=== PATIENT | male | born 1950 | race Caucasian/White ===

== ENCOUNTER 2020-08-29 20:28 | Inpatient (IN) | payer MEDICAID, SELFPAY ==
--- NOTE | ~2020-08-29 | US_ITS ---
EXAMINATION: US ABDOMEN LIMITED CLINICAL INFORMATION: Upper GI bleed. Rule out cirrhosis. COMPARISON: None TECHNIQUE: Real-time imaging of the right upper quadrant abdominal viscera. FINDINGS: PANCREAS: The pancreatic body and portions of the head and tail are visualized and appear unremarkable. Remainder of pancreas is obscured by overlying bowel gas. LIVER: Abnormal. The liver is atrophic with relative enlargement of the left lobe and atrophy of the right lobe. Nodular surface contour is seen and liver parenchymal texture is coarse and heterogeneous. Small volume ascites is seen surrounding the liver. With color Doppler imaging, the main portal vein is found to be patent with normal hepatopetal flow demonstrated. There is enlargement of the splenic vein. Findings are consistent with liver cirrhosis and portal venous hypertension. No focal hepatic lesion. There is no intrahepatic biliary duct dilatation seen. GALLBLADDER: Abnormal. The gallbladder is physiologically distended without evidence of stones, sludge, or polyps. There is diffuse gallbladder wall thickening and gallbladder wall edema, most likely a sympathetic reaction to the ascitic fluid as well as hepatic dysfunction. No sonographic Ng sign is elicited while scanning over the gallbladder. COMMON BILE DUCT: Suboptimally seen with only a small segment visualized and appearing normal in caliber, measuring 0.2 cm in diameter. RIGHT KIDNEY: Normal. No hydronephrosis. No renal calculi or focal parenchymal lesions. The kidney measures 10.0 cm in maximum dimension. FREE FLUID: None. US/US abdomen limited IMPRESSION: 1. As discussed above, findings are consistent with liver cirrhosis and portal venous hypertension. 2. Diffuse gallbladder wall thickening is seen, likely a function of hepatic dysfunction and surrounding ascitic fluid. Clinical correlation requested. CBD, though poorly visualized, does not appear dilated and no sonographic Ng sign is elicited while scanning over the gallbladder.
[2020-08-29 20:40] VITALS: BMI 25.0
[2020-08-29 20:46] VITALS: BP 142/86; PULSE 85; RESP 16; TEMP 36.9; O2SAT 99
--- NOTE | 2020-08-29 21:02 | ED.GIBLEED ---
HPI - GI Bleed General Chief complaint: GI Bleed Stated complaint: vomiting blood,urinating blood Time Seen by Provider: 08/29/20 20:57 Source: patient and family Mode of arrival: ambulatory Limitations: language barrier History of Present Illness HPI Narrative: Patient from [place] with history of hepatitis-C, upper GI bleed, comes here for as he vomited just an hour ago small amount handful of bright red blood also had bowel movement which had darker color blood 1 time before arrival. Patient feels abdominal upset no nausea no dizziness no palpitation. Patient does have a similar episode 2 more times 1st one was 2 years ago when he was admitted to ICU and received 4 units of blood had endoscopy and colonoscopy done which showed abnormal blood vessels in the stomach. About 8- 9 months ago patient had similar episode of vomiting blood and was admitted and received 3 units of blood and the skin which showed the same abnormal gastric blood vessels and was cauterized patient not on any PPI nonalcoholic and been doing good for last 8 months and this happened Related Data Allergies Allergy/AdvReac Type Severity Reaction Status Date / Time No Known Allergies Allergy Verified 08/29/20 20:57 Review of Systems Review of Systems: Constitutional : No Weight loss, No Fever, No Chills ENT/Mouth : No sore throat, No Rhinorrhea Eyes: No Eye Pain, No Swelling Cardiovascular : No Chest Pain, no palpitations Respiratory : No Cough, No Sputum, no shortness of breath Gastrointestinal : no Nausea, No Vomiting, No Diarrhea, + abdominal Pain, no black stools Genitourinary : No Dysuria, No Urinary Frequency Musculoskeletal : No joint pain, No Myalgias, No Joint Swelling Skin : No Skin Lesions, No rash Neuro : No Weakness, No Numbness, No Dizziness, No Headache Psych : No Anxiety/Panic, No Depression Heme/Lymph: No Bruising, No Lymphadenopathy Endocrine : No Polyuria, No Polydipsia All other systems reviewed and are negative [facility] Social History Social History Alcohol intake: never Patient Tobacco Use Status: Tobacco use Unknown Use of substances other than those prescribed or required for medical reasons: No Advance Directives: No Physical Exam Vital Signs: Vital Signs: Last Vital Signs Temp 98.5 F 08/29/20 20:46 Pulse 85 08/29/20 20:46 Resp 16 08/29/20 20:46 BP 142/86 H 08/29/20 20:46 Pulse Ox 99 08/29/20 20:46 Body Mass Index 25.0 Appearance: Alert. Oriented X3. No acute distress. Eyes: PERRLA, No Nystagmus ENT: Pharynx normal. Oral Mucosa moist Neck: Normal inspection. Neck supple. CVS: Normal heart rate and rhythm. Pulses normal. Respiratory: No respiratory distress. Equal air entry bilateral, no wheezing/rales/rhonchi Abdomen: Soft , mild epigastric tenderness Bowel sounds are present, no mass palpable, no CVA tenderness rectal: Maroon colored blood on the finger no stool guaiac-positive Skin: Skin warm and dry. Normal skin color. Normal skin turgor. Extremities: No lower extremity edema. No calf tenderness Neuro: Oriented X 3. No motor deficit. No sensory deficit.No cerebellar signs , cranial nerves II-XII intact MDM - GI Bleed MDM Narrative Medical decision making narrative: Patient's history of hepatitis-C with recurrent upper GI bleed platelet counts 100,000 slightly elevated LFT likely has portal hypertension and gastric varices which cause of bleeding in the past at this time patient vomited only 1 time hemodynamically stable has slight tachycardia with heart rate of 110 had another bowel movement in the ER with small amount of blood no more vomiting at this time. Patient started on Protonix and Sandostatin. 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 and she plan to do endoscopy in the morning. Will repeat H&H to see the trend type and screen to hold blood Lab Data Attestation: I reviewed the patient's lab results. Result diagrams: 08/29/20 21:34 08/29/20 21:34 Labs: Lab Results 08/29/20 08/29/20 08/29/20 Range/Units 21:33 21:34 21:34 WBC 5.4 (4.8-10.8) X10*3/uL RBC 3.95 L (4.60-5.80) X10*6/uL Hgb 11.4 L (14.0-18.0) g/dl Hct 35.3 L (42-52) % MCV 89.4 (80-98) fL MCH 28.9 (27.0-33.0) pg MCHC 32.3 (31.0-36.0) g/dl RDW 18.1 H (11.0-16.0) % Plt Count 100 L (160-400) X10*3/uL MPV 11.0 (9.4-12.4) fL Immature Gran % (Auto) 0.6 H (0.0-0.4) % Neut % (Auto) 77.0 H (45-73) % Lymph % (Auto) 13.8 L (20-40) % Nance % (Auto) 6.6 (2-11) % Eos % (Auto) 1.8 (0-4) % Baso % (Auto) 0.2 (0-2) % Lymph # (Auto) 0.8 L (1.2-4.9) X10*3/uL Nance # (Auto) 0.4 (0.1-1.2) X10*3/uL Eos # (Auto) 0.1 (0.0-0.4) X10*3/uL Baso # (Auto) 0.0 (0.0-0.2) X10*3/uL Abs Immat Gran (auto) 0.03 (0.00-0.03) X10*3/uL Absolute Neuts (auto) 4.2 (2.0-8.3) X10*3/uL Absolute Nucleated RBC 0.000 (0.0-0.012) X10*3/uL Nucleated RBC % (auto) 0.0 (0.0-0.2) /100WBC PT 16.1 H (10.8-13.0) SEC INR 1.4 H (0.9-1.1) APTT 31.7 (24.1-38.0) SEC Sodium (135-145) mmol/L Potassium (3.3-5.1) mmol/L Chloride (96-108) mmol/L Carbon Dioxide (22-29) mmol/L Anion Gap (12-20) BUN (9-16) mg/dL Creatinine (0.5-1.4) mg/dL Estim Creat Clear Calc Estimated GFR Random Glucose (60-115) mg/dL Calcium (8.4-10.2) mg/dL Total Bilirubin (0.0-1.0) mg/dL Direct Bilirubin (0.0-0.5) mg/dL AST (5-37) U/L ALT (0-40) U/L Alkaline Phosphatase (39-117) U/L Total Protein (6.5-8.0) g/dL Albumin (3.5-5.0) g/dL Lipase (8-78) U/L Stool Occult Blood POSITIVE (NEGATIVE) COVID-19 (SEBASTIAN) (Negative) COVID-19 Clin Com Blood Type Antibody Screen 08/29/20 08/29/20 08/30/20 Range/Units 21:34 21:34 00:28 WBC (4.8-10.8) X10*3/uL RBC (4.60-5.80) X10*6/uL Hgb (14.0-18.0) g/dl Hct (42-52) % MCV (80-98) fL MCH (27.0-33.0) pg MCHC (31.0-36.0) g/dl RDW (11.0-16.0) % Plt Count (160-400) X10*3/uL MPV (9.4-12.4) fL Immature Gran % (Auto) (0.0-0.4) % Neut % (Auto) (45-73) % Lymph % (Auto) (20-40) % Nance % (Auto) (2-11) % Eos % (Auto) (0-4) % Baso % (Auto) (0-2) % Lymph # (Auto) (1.2-4.9) X10*3/uL Nance # (Auto) (0.1-1.2) X10*3/uL Eos # (Auto) (0.0-0.4) X10*3/uL Baso # (Auto) (0.0-0.2) X10*3/uL Abs Immat Gran (auto) (0.00-0.03) X10*3/uL Absolute Neuts (auto) (2.0-8.3) X10*3/uL Absolute Nucleated RBC (0.0-0.012) X10*3/uL Nucleated RBC % (auto) (0.0-0.2) /100WBC PT (10.8-13.0) SEC INR (0.9-1.1) APTT (24.1-38.0) SEC Sodium 143 (135-145) mmol/L Potassium 4.3 (3.3-5.1) mmol/L Chloride 108 (96-108) mmol/L Carbon Dioxide 28 (22-29) mmol/L Anion Gap 11 L (12-20) BUN 33 H (9-16) mg/dL Creatinine 0.84 (0.5-1.4) mg/dL Estim Creat Clear Calc 75.4 Estimated GFR > 60 Random Glucose 111 (60-115) mg/dL Calcium 9.3 (8.4-10.2) mg/dL Total Bilirubin 1.0 (0.0-1.0) mg/dL Direct Bilirubin 0.5 (0.0-0.5) mg/dL AST 74 H (5-37) U/L ALT 89 H (0-40) U/L Alkaline Phosphatase 79 (39-117) U/L Total Protein 7.7 (6.5-8.0) g/dL Albumin 4.2 (3.5-5.0) g/dL Lipase 83 H (8-78) U/L Stool Occult Blood (NEGATIVE) COVID-19 ([facility]IAN) Negative (Negative) COVID-19 Clin Com See Note Blood Type A Positive Antibody Screen NEGATIVE Discharge Plan Discharge Clinical Impression: GI bleed Qualifiers: GI bleed type/associated pathology: angiodysplasia of stomach and duodenum Qualified Code(s): K31.811 - Angiodysplasia of stomach and duodenum with bleeding Patient Disposition: Admitted As Inpatient
[2020-08-29 21:39] LABS: Basophils Percent Auto 0.2 % (0-2); Eosinophils Absolute Auto 0.1 X10*3/uL (0.0-0.4); Eosinophils Percent Auto 1.8 % (0-4); Hematocrit 35.3 % (42-52); Hemoglobin 11.4 g/dl (14.0-18.0); Imm Gran Abs Auto 0.03 X10*3/uL (0.00-0.03); Imm Gran Pct Auto 0.6 % (0.0-0.4); Lymphocytes Absolute Auto 0.8 X10*3/uL (1.2-4.9); Lymphocytes Percent Auto 13.8 % (20-40); MANUAL DIFF FLAG NO; Mean Corpuscular HGB Conc 32.3 g/dl (31.0-36.0); Mean Corpuscular Hemoglobin 28.9 pg (27.0-33.0); Mean Corpuscular Volume 89.4 fL (80-98); Monocytes Absolute Auto 0.4 X10*3/uL (0.1-1.2); Monocytes Percent Auto 6.6 % (2-11); Neutrophils Absolute Auto 4.2 X10*3/uL (2.0-8.3); Platelet Count 100 X10*3/uL (160-400); Red Blood Count 3.95 X10*6/uL (4.60-5.80); Red Cell Distribution Width 18.1 % (11.0-16.0); White Blood Count 5.4 X10*3/uL (4.8-10.8)
[2020-08-29 21:40] LABS: OBS Int Ctl Valid YES; OBS1 POSITIVE (NEGATIVE)
[2020-08-29] MEDS: Pantoprazole Sodium 40 MG/10 ML VIAL 80 MG IVPUSH (21:56)
[2020-08-29] MEDS: Magnesium Hydrox/Alum Hydrox 30 ML ORAL.SUSP PO (21:57)
[2020-08-29 22:04] LABS: INTERNATIONAL NORM RATIO 1.4 (0.9-1.1); Partial Thromboplastin Time 31.7 SEC (24.1-38.0); Prothrombin Time 16.1 SEC (10.8-13.0)
[2020-08-29 22:14] LABS: Alanine Aminotransferase 89 U/L (0-40); Albumin Level 4.2 g/dL (3.5-5.0); Alkaline Phosphatase 79 U/L (39-117); Anion Gap 11 (12-20); Aspartate Amino Transferase 74 U/L (5-37); Bilirubin Direct 0.5 mg/dL (0.0-0.5); Blood Urea Nitrogen 33 mg/dL (9-16); Calcium 9.3 mg/dL (8.4-10.2); Carbon Dioxide 28 mmol/L (22-29); Chloride 108 mmol/L (96-108); Creatinine Clr Calc Pharmacy 75.4; Estimated Glomerular Filt Rate > 60; Glucose Random 111 mg/dL (60-115); Lipase 83 U/L (8-78); Potassium 4.3 mmol/L (3.3-5.1); Sodium 143 mmol/L (135-145); Total Protein 7.7 g/dL (6.5-8.0)
[2020-08-30] VITALS (12 sets, daily range): BP systolic 96–196; BP diastolic 52–99; PULSE 68–93; RESP 14–20; TEMP 36.7–37.2; O2SAT 96–100
[2020-08-30] MEDS: Pantoprazole Sodium 80 MG in 0.9 % Sodium Chloride 80 ML 10 MG IV ×2 (00:34→09:32)
[2020-08-30] MEDS: 0.9 % Sodium Chloride 1,000 ML 999 ML IVCONT (00:36)
[2020-08-30 00:54] LABS: COVID-19 Test Negative (Negative)
--- NOTE | 2020-08-30 01:08 | PM.IMHP ---
History of Present Illness Date of Service: 08/30/20 Chief Complaint: Blood in the vomitus 70-year-old male with a past medical history of hepatitis-C, history of GI bleed-received blood transfusions in the past; history of question varices presented to the hospital with a chief complaint of blood in the vomitus. Patient reported that he had an episode of blood in the stool, bright red in color, followed by a he had a small amount of blood in the vomitus. Subsequently came to the ER for further evaluation. Mentions that he had similar episode in the past about a year ago and received blood transfusion. Patient denies any chest pain palpitations lightheadedness dizziness. Denies any numbness tingling. Denies any fever chills cough. Denies any urinary symptoms. Review of all other systems is negative except mentioned above ER course: Per ER team patient exam was benign, vitals stable, noted to have a hemoglobin of 11.4, platelet count of 100; ER team discussed with Gastroenterology on-call who recommended to give the patient NPO for possible endoscopy in the morning and also recommended to start the patient on octreotide drip. [facility] Medical History (Updated 08/31/20 @ 14:23 by Mikel Urias MD) Hepatitis C Social History Household Members: Children Housing: House Do you presently have visiting nurse or other home services: No Alcohol intake: never Patient Tobacco Use Status: Never used Tobacco Use of substances other than those prescribed or required for medical reasons: No Currently Displaying Signs/Symptoms of Drug Intoxication Withdrawal: No Advance Directives: No Do you have thoughts of harming others: None Do you have a plan to hurt others: No Plan Recently lost weight without trying: No Eating poorly because of decreased appetite: No Nutrition Risks: No Nutritional Risk Poor oral hygiene: No Meds Allergies Allergy/AdvReac Type Severity Reaction Status Date / Time Penicillins [PCN] Allergy Unknown Verified 08/30/20 11:10 Active Medications: Current Medications Generic Name Dose Route Start Last Admin Trade Name Freq PRN Reason Stop Dose Admin Pantoprazole Sodium 80 mg/ 100 mls @ 10 mls/hr 08/30/20 00:15 08/30/20 00:34 Sodium Chloride IV 8 mg/hr .Q10H KIMMY 10 mls/hr Administration 8 MG/HR Sodium Chloride 1,000 mls @ 999 mls/hr 08/30/20 00:15 08/30/20 00:36 Ns IVCONT 08/30/20 01:15 999 mls/hr .Q1H1M KIMMY Administration Octreotide Acetate 500 mcg/ 501 mls @ 25.05 mls/hr 08/30/20 00:45 Sodium Chloride IVCONT .Q20H KIMMY 25 MCG/HR Dextrose/Sodium Chloride 1,000 mls @ 100 mls/hr 08/30/20 01:15 D51/2ns IVCONT .Q10H KIMMY Octreotide Acetate 500 mcg/ 501 mls @ 50.1 mls/hr 08/30/20 01:15 Sodium Chloride IVCONT 09/02/20 01:14 .Q10H KIMMY 50 MCG/HR Ondansetron HCl 4 mg 08/30/20 01:05 Ondansetron Hcl 4 Mg/2 Ml Vial IVPUSH Q8H PRN Nausea and Vomiting Pantoprazole Sodium 40 mg 08/30/20 06:30 Pantoprazole Sodium 40 Mg/10 Ml Vial IVPUSH BID@0630,1630 KIMMY Senna 17.2 mg 08/30/20 01:05 Sennosides 8.6 Mg Tablet PO BEDTIME PRN Constipation Sodium Chloride 3 ml 08/30/20 08:00 0.9 % Sodium Chloride Flush 3 Ml Syringe IVFLUSH QSHIFT [facility] Physical Exam Vital Signs and Narrative: Vital Signs: Last Vital Signs Temp 98.5 F 08/29/20 20:46 Pulse 85 08/29/20 20:46 Resp 16 08/29/20 20:46 BP 142/86 H 08/29/20 20:46 Pulse Ox 99 08/29/20 20:46 Body Mass Index 25.0 Gen: Appears be in no acute distress HEENT: NCAT, Moist mucosa. Pulmonary: Vesicular breath sounds, fair air entry CVS: Normal S1-S2 Abdomen: BS+, Soft, Nontender Extremities: Warm well perfused Neuro: Alert and awake. Results Labs CBC and Chem 7: 08/31/20 16:16 08/31/20 05:56 Labs: Laboratory Results - last 24 hr 08/29/20 08/29/20 08/29/20 21:33 21:34 21:34 MCV 89.4 MCH 28.9 MCHC 32.3 RDW 18.1 H Plt Count 100 L MPV 11.0 Immature Gran % (Auto) 0.6 H Neut % (Auto) 77.0 H Lymph % (Auto) 13.8 L Weston % (Auto) 6.6 Eos % (Auto) 1.8 Baso % (Auto) 0.2 Lymph # (Auto) 0.8 L Weston # (Auto) 0.4 Eos # (Auto) 0.1 Baso # (Auto) 0.0 Abs Immat Gran (auto) 0.03 Absolute Neuts (auto) 4.2 Absolute Nucleated RBC 0.000 Nucleated RBC % (auto) 0.0 PT 16.1 H INR 1.4 H APTT 31.7 Anion Gap Estim Creat Clear Calc Estimated GFR Random Glucose Calcium Total Bilirubin Direct Bilirubin AST ALT Alkaline Phosphatase Total Protein Albumin Lipase Stool Occult Blood POSITIVE COVID-19 ([facility]STIAN) COVID-19 Clin Com Blood Type Antibody Screen 08/29/20 08/29/20 08/30/20 21:34 21:34 00:28 MCV MCH MCHC RDW Plt Count MPV Immature Gran % (Auto) Neut % (Auto) Lymph % (Auto) Weston % (Auto) Eos % (Auto) Baso % (Auto) Lymph # (Auto) Weston # (Auto) Eos # (Auto) Baso # (Auto) Abs Immat Gran (auto) Absolute Neuts (auto) Absolute Nucleated RBC Nucleated RBC % (auto) PT INR APTT Anion Gap 11 L Estim Creat Clear Calc 75.4 Estimated GFR > 60 Random Glucose 111 Calcium 9.3 Total Bilirubin 1.0 Direct Bilirubin 0.5 AST 74 H ALT 89 H Alkaline Phosphatase 79 Total Protein 7.7 Albumin 4.2 Lipase 83 H Stool Occult Blood COVID-19 (SEBASTIAN) Negative COVID-19 Clin Com See Note Blood Type A Positive Antibody Screen NEGATIVE Assessment and Plan (1) GI bleed: Status: Acute 70-year-old male with a past medical history of hep C, history of GI bleed requiring blood transfusion presented to the hospital with a chief complaint of blood in the vomitus and blood in the stool. GI bleed: patient has question history of varices. Continue octreotide drip as per Gastroenterology recommendations. IV PPI b.i.d. Serial H&H Telemetry Gentle IV fluids DVT prophylaxis: SCD boots Code status: Full code
[2020-08-30] MEDS: Octreotide Acetate 100 MCG/ML AMPUL 50 MCG IVPUSH (01:53)
[2020-08-30] MEDS: Octreotide Acetate 500 MCG in 0.9 % Sodium Chloride 500 ML 50.1 MCG IVCONT ×2 (01:54→14:12)
[2020-08-30 02:11] LABS: Hematocrit 28.7 % (42-52); Hemoglobin 9.4 g/dl (14.0-18.0)
[2020-08-30] MEDS: ondansetron HCL 4 MG/2 ML VIAL IVPUSH (03:09)
[2020-08-30] MEDS: Morphine Sulfate 4 MG/ML CARTRIDGE IVPUSH (03:09)
[2020-08-30] MEDS: Dextrose 5 % and 0.45 % NaCl 1,000 ML 100 ML IVCONT ×3 (05:25→22:40)
[2020-08-30] MEDS: Pantoprazole Sodium 40 MG/10 ML VIAL IVPUSH ×2 (06:26→17:27)
[2020-08-30 06:48] LABS: MANUAL DIFF FLAG NO
[2020-08-30 06:57] LABS: Basophils Percent Auto 0.4 % (0-2); Eosinophils Absolute Auto 0.1 X10*3/uL (0.0-0.4); Eosinophils Percent Auto 1.8 % (0-4); Hematocrit 27.9 % (42-52); Imm Gran Abs Auto 0.02 X10*3/uL (0.00-0.03); Imm Gran Pct Auto 0.7 % (0.0-0.4); Lymphocytes Absolute Auto 0.6 X10*3/uL (1.2-4.9); Lymphocytes Percent Auto 20.9 % (20-40); Mean Corpuscular HGB Conc 32.3 g/dl (31.0-36.0); Mean Corpuscular Hemoglobin 29.4 pg (27.0-33.0); Mean Corpuscular Volume 91.2 fL (80-98); Mean Platelet Volume 12.1 fL (9.4-12.4); Monocytes Absolute Auto 0.3 X10*3/uL (0.1-1.2); Monocytes Percent Auto 9.7 % (2-11); Neutrophils Absolute Auto 1.9 X10*3/uL (2.0-8.3); Neutrophils Percent Auto 66.5 % (45-73); Red Blood Count 3.06 X10*6/uL (4.60-5.80); Red Cell Distribution Width 17.4 % (11.0-16.0); White Blood Count 2.8 X10*3/uL (4.8-10.8)
--- NOTE | 2020-08-30 07:35 | PM.GICN ---
History of Present Illness Data of Consult Service Date: 08/30/20 Requesting physician: Scott Taylor Primary Care Provider: Nonstaff Physician HPI Reason for consult: GI Bleed 70-year-old [place] speaking male presented to [facility] ED on 08/29/2020 with GI bleeding: HPI Narrative: Patient from [place] with history of hepatitis-C, upper GI bleed, comes here for as he vomited just an hour ago small amount handful of bright red blood also had bowel movement which had darker color blood 1 time before arrival. Patient feels abdominal upset no nausea no dizziness no palpitation. Patient does have a similar episode 2 more times 1st one was 2 years ago when he was admitted to ICU and received 4 units of blood had endoscopy and colonoscopy done which showed abnormal blood vessels in the stomach. About 8- 9 months ago patient had similar episode of vomiting blood and was admitted and received 3 units of blood and the skin which showed the same abnormal gastric blood vessels and was cauterized patient not on any PPI nonalcoholic and been doing good for last 8 months and this happened Patient started on Protonix and Sandostatin in the ED and transfused 1 unit of PRBC. Pt was diagnosed with Hepatitis C 40 yrs ago (likely from past IVDA) and denies getting any treatment in the past Pt denies dysphagia, nausea, change in appetite or weight. Denies recent change in bowel habits, constipation, diarrhea. Patient denies major cardiac or pulmonary problems, loud snoring or sleep apnea Denies problems with anesthesia in the past. Denies being on chronic anticoagulation. Patient denies known family history of colon polyps, colon cancer or other GI malignancies. PAST EGD/COLONOSCOPY: EGD and colon 2 yrs ago in [place] EGD 8-9 months ago in [place] Is source of above procedures are not available at time of this dictation Review of Systems Constitutional: Constitutional: Denies fever(s), Denies headache(s) and Denies weight loss Eyes: Eyes: Denies eye discharge and Denies irritation ENT: Reports Normal hearing present, Denies dysphagia, Denies dizziness and Denies headache(s) Cardiovascular: Cardiovascular: Denies chest pain, Denies leg edema and Denies dyspnea on exertion Respiratory: Respiratory: Denies cough, Denies dyspnea on exertion and Denies wheezing Gastrointestinal: Gastrointestinal: Reports abdominal pain, Reports hematochezia (maroon stools), Denies change in bowel habits, Denies dysphagia, Denies heartburn and Reports hematemesis Genitourinary: Genitourinary: Denies dysuria Musculoskeletal: Musculoskeletal: Denies back pain and Denies arthralgias Integumentary/Breasts: Skin/Breast: Denies pruritus, Denies rash and Denies jaundice Neurologic: Reports Normal hearing present, Denies Abnormal speech present, Denies dizziness, Denies headache(s) and Denies seizure-like activity Psychiatric: Psychiatric: Denies anxiety, Denies depression and Denies panic attacks Endocrine: Endocrine: Denies cold intolerance, Denies flushing and Denies heat intolerance Hematologic/Lymphatic: Hematologic/Lymphatic: Denies easy bleeding and Denies easy bruising Allergic/Immunologic: Allergic/Immunologic: Denies wheezing PMFSH Past Medical History Medical History (Updated 09/10/20 @ 00:02 by Chantale Rahman) Hepatitis C Social History Social History Household Members: Children Housing: House Do you presently have visiting nurse or other home services: No Alcohol intake: never Patient Tobacco Use Status: Never used Tobacco Use of substances other than those prescribed or required for medical reasons: No Currently Displaying Signs/Symptoms of Drug Intoxication Withdrawal: No Advance Directives: No Do you have thoughts of harming others: None Do you have a plan to hurt others: No Plan Recently lost weight without trying: No Eating poorly because of decreased appetite: No Nutrition Risks: No Nutritional Risk Poor oral hygiene: No service: No Meds Allergies Allergy/AdvReac Type Severity Reaction Status Date / Time Penicillins [PCN] Allergy Unknown Verified 08/30/20 11:10 Active Medications: Current Medications Generic Name Dose Route Start Last Admin Trade Name Freq PRN Reason Stop Dose Admin Pantoprazole Sodium 80 mg/ 100 mls @ 10 mls/hr 08/30/20 00:15 08/30/20 00:34 Sodium Chloride IV 8 mg/hr .Q10H KIMMY 10 mls/hr Administration 8 MG/HR Octreotide Acetate 500 mcg/ 501 mls @ 25.05 mls/hr 08/30/20 00:45 08/30/20 01:53 Sodium Chloride IVCONT Not Given .Q20H KIMMY 25 MCG/HR Dextrose/Sodium Chloride 1,000 mls @ 100 mls/hr 08/30/20 01:15 06/12/21 05:25 D51/2ns IVCONT 100 mls/hr .Q10H KIMMY Administration Octreotide Acetate 500 mcg/ 501 mls @ 50.1 mls/hr 08/30/20 01:15 08/30/20 01:54 Sodium Chloride IVCONT 09/02/20 01:14 50 mcg/hr .Q10H KIMMY 50.1 mls/hr Administration 50 MCG/HR Ondansetron HCl 4 mg 08/30/20 01:05 Ondansetron Hcl 4 Mg/2 Ml Vial IVPUSH Q8H PRN Nausea and Vomiting Pantoprazole Sodium 40 mg 08/30/20 06:30 08/30/20 06:26 Pantoprazole Sodium 40 Mg/10 Ml Vial IVPUSH 40 mg BID@0630,1630 KIMMY Administration Senna 17.2 mg 08/30/20 01:05 Sennosides 8.6 Mg Tablet PO BEDTIME PRN Constipation Sodium Chloride 3 ml 08/30/20 08:00 0.9 % Sodium Chloride Flush 3 Ml Syringe IVFLUSH QSHIFT [facility] Physical Exam Vital Signs: Vital Signs: Last Vital Signs Temp 98.4 F 08/30/20 03:13 Pulse 93 08/30/20 07:10 Resp 18 08/30/20 07:10 BP 135/77 08/30/20 07:10 Pulse Ox 97 08/30/20 07:10 Body Mass Index 25.0 Const: General: healthy appearing and no acute distress Nutritional Appearance: average body habitus Orientation/consciousness: patient oriented x3 Limitations: no limitations HENMT: Head: Yes normal to inspection Ears: hearing grossly normal bilaterally Mouth: Normal oral and palatal mucosa present Eyes: Sclerae: sclerae normal Pupils: Equal, round and reactive pupils present Neck: Neck: Yes normal visual inspection Chest: Chest palpation & inspection: normal inspection of the chest Resp: Effort & Inspection: normal respiratory effort Auscultation: clear to auscultation bilaterally Cardio: Palpation: normal PMI Rate: regular rate Rhythm: regular rhythm Heart sounds: S1 normal heart sound present, S2 normal heart sound present and no murmurs GI: Palpation (GI): Soft to palpation, Tenderness to palpation present (GI) (Mild epigastric tenderness) and No hepatosplenomegaly present Auscultation: normal bowel sounds Rectal Exam - Male: Yes deferred Skin: General skin exam: no rashes or lesions noted and other (Multiple tattoos) Neuro: General: patient oriented x3, gait normal and moves all extremities Cranial nerves: Yes Equal, round and reactive pupils present and Yes Normal hearing present Speech: No Abnormal speech present Psych: Appearance: grossly normal Mental Status: mental status grossly normal Results Labs CBC & Chem 7: 09/02/20 05:29 09/01/20 06:04 Labs: Short CBC 08/29/20 08/30/20 08/30/20 Range/Units 21:34 02:05 06:40 WBC 5.4 2.8 L (4.8-10.8) X10*3/uL Hgb 11.4 L 9.4 L 9.0 L (14.0-18.0) g/dl Hct 35.3 L 28.7 L 27.9 L (42-52) % Plt Count 100 L (160-400) X10*3/uL BMP 08/29/20 21:34 Sodium 143 Potassium 4.3 Chloride 108 Carbon Dioxide 28 BUN 33 H Creatinine 0.84 Calcium 9.3 Liver Function 08/29/20 Range/Units 21:34 Total Bilirubin 1.0 (0.0-1.0) mg/dL Direct Bilirubin 0.5 (0.0-0.5) mg/dL AST 74 H (5-37) U/L ALT 89 H (0-40) U/L Alkaline Phosphatase 79 (39-117) U/L Albumin 4.2 (3.5-5.0) g/dL Assessment and Plan (1) GI bleed: Qualifiers: GI bleed type/associated pathology: angiodysplasia of stomach and duodenum Qualified Code(s): K31.811 - Angiodysplasia of stomach and duodenum with bleeding Status: Resolved (2) Hepatitis C: Status: Acute (3) Thrombocytopenia: Status: Resolved 70 year old [place]ayan-speaking male with history of hepatitis-C. Pt admitted with 3rd episode of upper GI bleed. Past EGDs showed a blood vessel in the stomach - ? gastric Dieulafoy versus gastric varix. Patient was diagnosed with chronic hepatitis-C 40 years ago and denies getting any treatment in the past. Pt has thrombocytopenia and coagulopathy with elevated LFTs likely due to cirrhosis with portal hypertension. He is at risk for esophageal and gastric varices. Patient started on Protonix and Sandostatin in the ED and transfused 1 unit of PRBC. RECOMMENDATIONS: 1. Continue IV PPI and octrotide 2. Proceed with urgent upper endoscopy this morning - procedure and potential complications including bleeding, perforation, reaction to anesthetics and aspiration were reviewed with the patient with the help of a layer up. 3. AFP and abdominal US to screen for HCC and ascites. 4. Hepatitis serologies and Hepatitis C viral load - added to am labs Procedures Date of Service Date of Service: 08/30/20
[2020-08-30 07:45] LABS: Anion Gap 10 (12-20); Blood Urea Nitrogen 25 mg/dL (9-16); Calcium 5.8 mg/dL (8.4-10.2); Carbon Dioxide 15 mmol/L (22-29); Chloride 123 mmol/L (96-108); Creatinine Clr Calc Pharmacy 119.5; Estimated Glomerular Filt Rate > 60; Glucose Random 119 mg/dL (60-115); Potassium 3.5 mmol/L (3.3-5.1); Sodium 144 mmol/L (135-145)
[2020-08-30 07:46] LABS: Magnesium 1.1 mg/dL (1.6-2.6)
[2020-08-30 07:50] LABS: Platelet Count 59 X10*3/uL (160-400)
--- NOTE | 2020-08-30 08:01 | PC.NURSE ---
md almanza at bedside, plan for ultrasound and endoscopy today
--- NOTE | 2020-08-30 09:10 | HO.ANESPROP2 ---
[facility] Active Problems Active Problems: All Active Problems (Updated 08/30/20 @ 01:23 by Ricardo Swanson MD) GI bleed (Acute) Past Medical History Medical History (Updated 08/30/20 @ 09:46 by Kermit Bob MD) Hepatitis C Social History Social History Alcohol intake: never Patient Tobacco Use Status: Tobacco use Unknown Use of substances other than those prescribed or required for medical reasons: No Advance Directives: No Meds Allergies Allergy/AdvReac Type Severity Reaction Status Date / Time No Known Allergies Allergy Verified 08/29/20 20:57 Active Medications: Current Medications Generic Name Dose Route Start Last Admin Trade Name Freq PRN Reason Stop Dose Admin Pantoprazole Sodium 80 mg/ 100 mls @ 10 mls/hr 08/30/20 00:15 08/30/20 00:34 Sodium Chloride IV 8 mg/hr .Q10H KIMMY 10 mls/hr Administration 8 MG/HR Octreotide Acetate 500 mcg/ 501 mls @ 25.05 mls/hr 08/30/20 00:45 08/30/20 01:53 Sodium Chloride IVCONT Not Given .Q20H KIMMY 25 MCG/HR Dextrose/Sodium Chloride 1,000 mls @ 100 mls/hr 08/30/20 01:15 08/30/20 05:25 D51/2ns IVCONT 100 mls/hr .Q10H KIMMY Administration Octreotide Acetate 500 mcg/ 501 mls @ 50.1 mls/hr 08/30/20 01:15 08/30/20 01:54 Sodium Chloride IVCONT 09/02/20 01:14 50 mcg/hr .Q10H KIMMY 50.1 mls/hr Administration 50 MCG/HR Magnesium Sulfate 2 gm in 50 mls @ 25 mls/hr 08/30/20 08:51 Magnesium Sulfate/H2o IV 08/30/20 10:50 ONCE ONE Ondansetron HCl 4 mg 08/30/20 01:05 Ondansetron Hcl 4 Mg/2 Ml Vial IVPUSH Q8H PRN Nausea and Vomiting Pantoprazole Sodium 40 mg 08/30/20 06:30 08/30/20 06:26 Pantoprazole Sodium 40 Mg/10 Ml Vial IVPUSH 40 mg BID@0630,1630 KIMMY Administration Senna 17.2 mg 06/12/21 01:05 Sennosides 8.6 Mg Tablet PO BEDTIME PRN Constipation Sodium Chloride 3 ml 08/30/20 08:00 08/30/20 07:50 0.9 % Sodium Chloride Flush 3 Ml Syringe IVFLUSH Not Given QSHIFT KIMMY Exam Exam Date and Time: August 30, 2020 0910 Height,Weight and Vital Signs: Height 5 ft 7 in Weight 72.575 kg Last Vital Signs Temp 98.4 F 08/30/20 03:13 Pulse 93 08/30/20 07:10 Resp 18 08/30/20 07:10 BP 135/77 08/30/20 07:10 Pulse Ox 97 08/30/20 07:10 Pertinent Lab Results Pertinent Lab Results: Laboratory Tests 08/29/20 08/29/20 08/29/20 21:33 21:34 21:34 WBC 5.4 RBC 3.95 L Hgb 11.4 L Hct 35.3 L MCV 89.4 MCH 28.9 MCHC 32.3 RDW 18.1 H Plt Count 100 L MPV 11.0 Immature Gran % (Auto) 0.6 H Neut % (Auto) 77.0 H Lymph % (Auto) 13.8 L Irwin % (Auto) 6.6 Eos % (Auto) 1.8 Baso % (Auto) 0.2 Lymph # (Auto) 0.8 L Irwin # (Auto) 0.4 Eos # (Auto) 0.1 Baso # (Auto) 0.0 Abs Immat Gran (auto) 0.03 Absolute Neuts (auto) 4.2 Absolute Nucleated RBC 0.000 Nucleated RBC % (auto) 0.0 PT 16.1 H INR 1.4 H APTT 31.7 Sodium Potassium Chloride Carbon Dioxide Anion Gap BUN Creatinine Estim Creat Clear Calc Estimated GFR Random Glucose Calcium Magnesium Total Bilirubin Direct Bilirubin AST ALT Alkaline Phosphatase Total Protein Albumin Lipase Stool Occult Blood POSITIVE COVID-19 ([facility]) COVID-19 Clin Com Blood Type Antibody Screen Crossmatch 08/29/20 08/29/20 08/30/20 21:34 21:34 00:28 WBC RBC Hgb Hct MCV MCH MCHC RDW Plt Count MPV Immature Gran % (Auto) Neut % (Auto) Lymph % (Auto) Irwin % (Auto) Eos % (Auto) Baso % (Auto) Lymph # (Auto) Irwin # (Auto) Eos # (Auto) Baso # (Auto) Abs Immat Gran (auto) Absolute Neuts (auto) Absolute Nucleated RBC Nucleated RBC % (auto) PT INR APTT Sodium 143 Potassium 4.3 Chloride 108 Carbon Dioxide 28 Anion Gap 11 L BUN 33 H Creatinine 0.84 Estim Creat Clear Calc 75.4 Estimated GFR > 60 Random Glucose 111 Calcium 9.3 Magnesium Total Bilirubin 1.0 Direct Bilirubin 0.5 AST 74 H ALT 89 H Alkaline Phosphatase 79 Total Protein 7.7 Albumin 4.2 Lipase 83 H Stool Occult Blood COVID-19 ([facility]) Negative COVID-[employer] Com See Note Blood Type A Positive Antibody Screen NEGATIVE Crossmatch See Detail 08/30/20 08/30/20 08/30/20 02:05 06:40 06:40 WBC 2.8 L RBC 3.06 L D Hgb 9.4 L 9.0 L Hct 28.7 L 27.9 L MCV 91.2 MCH 29.4 MCHC 32.3 RDW 17.4 H Plt Count 59 L D MPV 12.1 Immature Gran % (Auto) 0.7 H Neut % (Auto) 66.5 Lymph % (Auto) 20.9 Irwin % (Auto) 9.7 Eos % (Auto) 1.8 Baso % (Auto) 0.4 Lymph # (Auto) 0.6 L Irwin # (Auto) 0.3 Eos # (Auto) 0.1 Baso # (Auto) 0.0 Abs Immat Gran (auto) 0.02 Absolute Neuts (auto) 1.9 L Absolute Nucleated RBC 0.000 Nucleated RBC % (auto) 0.0 PT INR APTT Sodium 144 Potassium 3.5 Chloride 123 H Carbon Dioxide 15 L Anion Gap 10 L BUN 25 H Creatinine 0.53 Estim Creat Clear Calc 119.5 Estimated GFR > 60 Random Glucose 119 H Calcium 5.8 L* D Magnesium Total Bilirubin Direct Bilirubin AST ALT Alkaline Phosphatase Total Protein Albumin Lipase Stool Occult Blood COVID-19 ([facility]IAN) COVID-19 Melinta Com Blood Type Antibody Screen Crossmatch 08/30/20 06:40 WBC RBC Hgb Hct MCV MCH MCHC RDW Plt Count MPV Immature Gran % (Auto) Neut % (Auto) Lymph % (Auto) Irwin % (Auto) Eos % (Auto) Baso % (Auto) Lymph # (Auto) Irwin # (Auto) Eos # (Auto) Baso # (Auto) Abs Immat Gran (auto) Absolute Neuts (auto) Absolute Nucleated RBC Nucleated RBC % (auto) PT INR APTT Sodium Potassium Chloride Carbon Dioxide Anion Gap BUN Creatinine Estim Creat Clear Calc Estimated GFR Random Glucose Calcium Magnesium 1.1 L* Total Bilirubin Direct Bilirubin AST ALT Alkaline Phosphatase Total Protein Albumin Lipase Stool Occult Blood COVID-19 ([facility]) COVID-19 Clin Com Blood Type Antibody Screen Crossmatch Airway Mallampati Class: II TM Dist: >3cm Neck ROM: Full Heart: RRR Lungs: CTA Assessment and Plan Assessment Anesthesia Assessment: Anesthesia Plan Discussed and Chart Reviewed Final Anesthetic Review NPO: Yes ASA Class: II and Emergency Final Preanesthetic Review: No Changes in Pt Med Stat, Meds/Allgs Chart Reviewed, Consent Obtained/Reviewed and Anes Risks/Benef Reviewed Patient Risk: Low Procedure Risk: Low Anesthetic Plan Anesthetic Plan: MAC: Disposition: Standard PACU
[2020-08-30] MEDS: Magnesium Sulfate/H2O 2 GM/50 ML PIGGYBACK IV (09:31)
--- NOTE | 2020-08-30 09:54 | PC.NURSE ---
pt to endo at this time
--- NOTE | 2020-08-30 10:09 | PM.OP ---
Brief Operative Note Date of Service: 08/30/20 Pre-op diagnosis: UGI Bleed Post-op diagnosis: other (Esophageal varices, portal gastropathy) Procedure: FLEXIBLE TRANSORAL UPPER GASTROINTESTINAL ENDOSCOPY WITH BAND LIGATION OF ESOPHAGEAL VARICES Consent: Indications for the procedure and potential complications of bleeding, perforation, reaction to medications and missed diagnosis were discussed with the patient with the help of a wedger machine and informed consent was obtained. Instrument: Olympus GIF therapeutic upper endoscope and GIF H 190 mid size upper endoscope Monitoring: Vital signs and clinical assessment, continuous EKG monitoring, Pulse oximetry, Carbon Dioxide monitoring and blood pressure monitoring were done throughout the procedure. Procedure: The patient was placed in the left lateral decubitis position and pre-procedure medications were administered and a bite block was placed. The therapeutic upper endoscope was inserted into the mouth and advanced under direct vision to the third part of duodenum. A careful inspection was made as the upper endoscope was withdrawn including a retroflexed examination of the proximal stomach; the therapeutic upper endoscope was removed. A mid-size upper endoscope was used to perform band ligation. Findings and interventions are described below. Findings: Larynx: Normal Esophagus: GE junction at 40 cms.. Grade 2-3 four column varices from 30 to 40 cms with red Evette signs without active bleeding. A [place] [employer] Super band super view Super 7 band ligater was loaded onto the mid-size upper endoscope. Band ligation x5 was performed with flattening of the varices Stomach: Moderate portal gastropathy. Antral erythema with a few superficial nonbleeding erosions in the antrum. Fundal folds versus early gastric varices without stigmata of bleeding and grade 2 flap valve on retroflexed examination of the cardia. Duodenum: Normal bulb and descending duodenum Intervention: Biopsies as noted above Impression and Post Procedure Diagnosis: Endoscopy Findings: ESOPHAGUS: Grade 2-3 four column varices from 30 to 40 cms with red evette signs without active bleeding. A [employer] Super band super view Super 7 band ligater was loaded onto the mid-size upper endoscope. Band ligation x5 was performed with flattening of the varices. STOMACH: Moderate portal gastropathy without bleeding. Antral erythema with a few superficial nonbleeding erosions in the antrum. Fundal folds versus early gastric varices without stigmata of bleeding and on retroflexed examination of the cardia. Upper GI bleeding likely from esophageal varices - likely subsided due to Octreotide. No active bleeding seen at the time of examination. Plan: Continue Octreotide infusion x 72 hrs. OK to change IV PPI infusion to BID. Follow serial H &H Q 8 hrly x 24 hrs and then QD if stable. Above findings were reviewed with the patient and his son, Mert at [phone]. Surgeon: Kermit Bob MD Anesthesia: MAC (Dr Naidu) Was an Supervisor Paint used for this Procedure?: No Supervisor Paint: Laina Husain Estimated blood loss (mL): 2 Pathology: none sent Condition: stable Disposition: PACU
--- NOTE | 2020-08-30 10:53 | PC.NURSE ---
patient arrived to pacu with three iv sites that ere not originally documented.
--- NOTE | 2020-08-30 10:54 | PC.NURSE ---
PROTONIX IS RUNNING AT 10ML/HOUR AND NOT ON GUARD RAILS ARRIVING FROM ER OCTEOTRIDE 50ML/HOUR RUNNING FROM ER NOT ON GUARD RAILS.
--- NOTE | 2020-08-30 11:05 | W.PM.OPN ---
Operative Note Operative Note Date of Service: 08/30/20 Narrative: Pre-op diagnosis:?UGI Bleed Post-op diagnosis:?other (Esophageal varices, portal gastropathy) Procedure:? FLEXIBLE TRANSORAL UPPER GASTROINTESTINAL ENDOSCOPY WITH BAND LIGATION OF ESOPHAGEAL VARICES Consent:?Indications for the procedure and potential complications of bleeding, perforation, reaction to medications and missed diagnosis were discussed with the patient with the help of a leather currier and informed consent was obtained. Instrument:?Olympus GIF therapeutic upper endoscope and GIF H 190 mid size upper endoscope Monitoring: Vital signs and clinical assessment, continuous EKG monitoring, Pulse oximetry, Carbon Dioxide monitoring and blood pressure monitoring were done throughout the procedure. Procedure:?The patient was placed in the left lateral decubitis position and pre-procedure medications were administered and a bite block was placed. The therapeutic upper endoscope was inserted into the mouth and advanced under direct vision to the third part of duodenum. A careful inspection was made as the upper endoscope was withdrawn including a retroflexed examination of the proximal stomach; the therapeutic upper endoscope was removed. A mid-size upper endoscope was used to perform band ligation. ?Findings and interventions are described below. Findings: Larynx:??Normal Esophagus:?GE junction at 40 cms.. Grade 2-3 four column varices from 30 to 40 cms with red Evette signs without active bleeding.? A [place] [employer] Super band super view Super 7 band ligater was loaded onto the mid-size upper endoscope. Band ligation x5 was performed with flattening of the varices Stomach:? Moderate portal gastropathy.? Antral erythema with a few superficial nonbleeding erosions in the antrum. Fundal folds versus early gastric varices without stigmata of bleeding and grade 2 flap valve on retroflexed examination of the cardia. Duodenum:?Normal bulb and descending duodenum Intervention:?Biopsies as noted above Impression and Post Procedure Diagnosis: Endoscopy Findings: ESOPHAGUS: Grade 2-3 four column varices from 30 to 40 cms with red evette signs without active bleeding.? A [place] [employer] Super band super view Super 7 band ligater was loaded onto the mid-size upper endoscope. Band ligation x5 was performed with flattening of the varices. STOMACH: Moderate portal gastropathy without bleeding.? Antral erythema with a few superficial nonbleeding erosions in the antrum. Fundal folds versus early gastric varices without stigmata of bleeding and on retroflexed examination of the cardia. Upper GI bleeding likely from esophageal varices - likely subsided due to Octreotide. No active bleeding seen at the time of examination. Plan: Continue Octreotide infusion x 72 hrs. OK to change IV PPI infusion to BID. Follow serial H &H Q 8 hrly x 24 hrs and then QD if stable. Above findings were reviewed with the patient and his son, Mert at [phone]. Repeat EGD in for fU of esophageal varices Surgeon:?Kermit Bob MD Anesthesia:?MAC (Dr Naidu) Was an Child Support Investigator used for this Procedure?:?No Child Support Investigator:?Laina Husain Estimated blood loss (mL):?2 Pathology:?none sent Condition:?stable Disposition:?PACU Breast [place] Node Biopsy Substrate(s) used for sentinel node biopsy in the non-neoadjuvant setting: Dye and Clips General Surg. - Synoptic Notes Breast [place] Node Biopsy Substrate(s) used for sentinel node biopsy in the non-neoadjuvant setting: Dye and Clips
--- NOTE | 2020-08-30 11:45 | PC.NURSE ---
FAXED FLOOR FOR NURSE TO NURSE. PATIENT AWARE OF PLAN.
--- NOTE | 2020-08-30 11:48 | PC.NURSE ---
called chiara navjot and left a voice mail for his room number [phone]. [phone].
--- NOTE | 2020-08-30 12:03 | PC.NURSE ---
reclled for reposrt to floor rn. awaitig call back for nurse to nurse report.
--- NOTE | 2020-08-30 12:36 | HO.PM.IMPN ---
Subjective Subjective Date of Service: 08/30/20 <Camilla Wynne NP - Last Filed: 08/30/20 13:57> 08/30/20 <Mikel Urias MD - Last Filed: 08/30/20 18:50> Interval History: Follow up GI bleed No further bleeding no abdominal pain <Camilla Wynne NP - Last Filed: 08/30/20 13:57> Physical Exam Vital Signs: Vital Signs: Last Vital Signs Temp 98.0 F 08/30/20 10:45 Pulse 72 08/30/20 11:27 Resp 18 08/30/20 11:27 BP 124/76 08/30/20 11:27 Pulse Ox 98 08/30/20 11:27 Body Mass Index 25.0 <Camilla Wynne NP - Last Filed: 08/30/20 13:57> Appearing in no acute distress lung sounds are clear to auscultation heart regular rate rhythm, clear S1, S2 positive bowel sounds, abdomen is soft, nontender neuro patient is alert x3, no focal deficits <Camilla Wynne NP - Last Filed: 08/30/20 13:57> Objective Data Current Medications Generic Name Dose Route Start Last Admin Trade Name Freq PRN Reason Stop Dose Admin Pantoprazole Sodium 80 mg/ 100 mls @ 10 mls/hr 08/30/20 00:15 08/30/20 09:32 Sodium Chloride IV 8 mg/hr .Q10H KIMMY 10 mls/hr Administration 8 MG/HR Octreotide Acetate 500 mcg/ 501 mls @ 25.05 mls/hr 08/30/20 00:45 08/30/20 01:53 Sodium Chloride IVCONT Not Given .Q20H KIMMY 25 MCG/HR Dextrose/Sodium Chloride 1,000 mls @ 100 mls/hr 08/30/20 01:15 08/30/20 05:25 D51/2ns IVCONT 100 mls/hr .Q10H KIMMY Administration Octreotide Acetate 500 mcg/ 501 mls @ 50.1 mls/hr 08/30/20 01:15 08/30/20 12:13 Sodium Chloride IVCONT 09/02/20 01:14 Infused .Q10H KIMMY Infusion 50 MCG/HR Ondansetron HCl 4 mg 08/30/20 01:05 Ondansetron Hcl 4 Mg/2 Ml Vial IVPUSH Q8H PRN Nausea and Vomiting Pantoprazole Sodium 40 mg 08/30/20 06:30 08/30/20 06:26 Pantoprazole Sodium 40 Mg/10 Ml Vial IVPUSH 40 mg BID@0630,1630 [facility] Administration Senna 17.2 mg 08/30/20 01:05 Sennosides 8.6 Mg Tablet PO BEDTIME PRN Constipation Sodium Chloride 3 ml 08/30/20 08:00 08/30/20 07:50 0.9 % Sodium Chloride Flush 3 Ml Syringe IVFLUSH Not Given QSHIFT KIMMY <Camilla Wynne NP - Last Filed: 08/30/20 13:57> Labs CBC & Chem 7: : 08/30/20 16:34 08/30/20 06:40 <Camilla Wynne NP - Last Filed: 08/30/20 13:57> Assessment and Plan (1) Hepatitis C: Status: Acute <Camilla Wynne NP - Last Filed: 08/30/20 13:57> (2) GI bleed: Status: Acute <Camilla Wynne NP - Last Filed: 08/30/20 13:57> Assessment and Plan: 70-year-old male with a past medical history of hep C, history of GI bleed requiring blood transfusion presented to the hospital with a chief complaint of blood in the vomitus and blood in the stool. Variceal bleed EGD with variceal banding today Continue octreotide drip as per Gastroenterology recommendations for 72 hours p.o. PPI. Serial H&H Telemetry Gentle IV fluids Hypomagnesemia. -2 g IV magnesium History of hepatitis-C untreated should start treatment once he has returned to [place] -viral load, profile pending DVT prophylaxis with SCD boots Code status: Full code <Camilla Wynne NP - Last Filed: 08/30/20 13:57> (3) Thrombocytopenia: Status: Acute <Camilla Wynne NP - Last Filed: 08/30/20 13:57> (4) Hyponatremia: Status: Acute <Camilla Wynne NP - Last Filed: 08/30/20 13:57> Assessment and Plan: I saw and examined the patient and discussed findings, mangement, and disposition with PA and I agree with the above, except if otherwise stated. Repeat Mag, calcium--give calcium gluconate <Mikel Mlapah, MD - Last Filed: 08/30/20 18:50>
[2020-08-30 16:40] LABS: PLT CLUMP 1
[2020-08-30 16:42] LABS: Hematocrit 30.9 % (42-52); Hemoglobin 10.2 g/dl (14.0-18.0); Mean Corpuscular Hemoglobin 29.5 pg (27.0-33.0); Mean Corpuscular Volume 89.3 fL (80-98); Mean Platelet Volume 10.2 fL (9.4-12.4); Red Blood Count 3.46 X10*6/uL (4.60-5.80); Red Cell Distribution Width 17.7 % (11.0-16.0)
[2020-08-30 16:45] LABS: Platelet Count 64 X10*3/uL (160-400)
[2020-08-30] MEDS: 0.9 % Sodium Chloride Flush 3 ML SYRINGE IVFLUSH (17:27)
[2020-08-30] MEDS: Morphine Sulfate 2 MG/ML CARTRIDGE IVPUSH (18:12)
[2020-08-30 19:44] LABS: Anion Gap 8 (12-20); Blood Urea Nitrogen 26 mg/dL (9-16); Calcium 8.3 mg/dL (8.4-10.2); Carbon Dioxide 24 mmol/L (22-29); Chloride 112 mmol/L (96-108); Creatinine Clr Calc Pharmacy 80.1; Estimated Glomerular Filt Rate > 60; Glucose Random 151 mg/dL (60-115); Potassium 4.2 mmol/L (3.3-5.1); Sodium 140 mmol/L (135-145)
[2020-08-31] VITALS (7 sets, daily range): BP systolic 140–172; BP diastolic 65–85; PULSE 70–84; RESP 18–20; TEMP 36.3–37.4; O2SAT 96–98
[2020-08-31] MEDS: Octreotide Acetate 500 MCG in 0.9 % Sodium Chloride 500 ML 50.1 MCG IVCONT ×2 (02:51→13:48)
[2020-08-31] MEDS: Dextrose 5 % and 0.45 % NaCl 1,000 ML 100 ML IVCONT (05:31)
[2020-08-31] MEDS: Pantoprazole Sodium 40 MG/10 ML VIAL IVPUSH ×2 (05:32→16:47)
[2020-08-31 07:23] LABS: Hematocrit 28.6 % (42-52); Hemoglobin 9.3 g/dl (14.0-18.0); Mean Corpuscular HGB Conc 32.5 g/dl (31.0-36.0); Mean Corpuscular Hemoglobin 28.9 pg (27.0-33.0); Mean Corpuscular Volume 88.8 fL (80-98); Mean Platelet Volume 12.2 fL (9.4-12.4); Red Blood Count 3.22 X10*6/uL (4.60-5.80); Red Cell Distribution Width 17.8 % (11.0-16.0); White Blood Count 3.6 X10*3/uL (4.8-10.8)
--- NOTE | 2020-08-31 07:25 | HO.POSTANES ---
Post Anesthesia Evaluation Post Anesthesia Evaluation Vital Signs: Vital Signs Temp Pulse Resp BP Pulse Ox 08/31/20 04:00 99.4 F 84 18 161/70 H 98 08/31/20 00:00 97.4 F 81 18 140/65 H 97 08/30/20 19:54 98.9 F 85 20 174/90 H 98 Anesthesia: Monitored Mental Status: Awake Pain Control: Satisfactory Nausea/Vomiting: None Hydration: Adequate Anesthesia-Related Issues: No Anes. Related Issues
[2020-08-31 07:29] LABS: Platelet Count 58 X10*3/uL (160-400)
[2020-08-31 07:39] LABS: Magnesium 1.9 mg/dL (1.6-2.6)
[2020-08-31 07:42] LABS: Anion Gap 8 (12-20); Blood Urea Nitrogen 19 mg/dL (9-16); Calcium 7.9 mg/dL (8.4-10.2); Carbon Dioxide 25 mmol/L (22-29); Chloride 111 mmol/L (96-108); Creatinine Clr Calc Pharmacy 80.1; Estimated Glomerular Filt Rate > 60; Glucose Random 120 mg/dL (60-115); Potassium 3.7 mmol/L (3.3-5.1); Sodium 140 mmol/L (135-145)
--- NOTE | 2020-08-31 10:11 | P.PNIM_ITS ---
Subjective Subjective Date of Service: 08/31/20 <Camilla Wynne NP - Last Filed: 08/31/20 10:19> 08/31/20 <Mikel Urias MD - Last Filed: 08/31/20 14:25> Interval History: follow-up variceal bleed small amount of bloody stool last night and this morning no abdominal pain feeling hungry <Camilla Wynne NP - Last Filed: 08/31/20 10:19> Physical Exam Vital Signs: Vital Signs: Last Vital Signs Temp 98.1 F 08/31/20 07:50 Pulse 82 08/31/20 07:50 Resp 19 08/31/20 07:50 BP 160/80 H 08/31/20 07:50 Pulse Ox 97 08/31/20 07:50 Body Mass Index 25.0 <Camilla Wynne NP - Last Filed: 08/31/20 10:19> Appearing in no acute distress lung sounds are clear to auscultation heart regular rate rhythm, clear S1, S2 positive bowel sounds, abdomen is soft, nontender neuro patient is alert x3, no focal deficits <Camilla Wynne NP - Last Filed: 08/31/20 10:19> Objective Data Current Medications Generic Name Dose Route Start Last Admin Trade Name Freq PRN Reason Stop Dose Admin Dextrose/Sodium Chloride 1,000 mls @ 100 mls/hr 08/30/20 01:15 08/31/20 05:31 D51/2ns IVCONT 100 mls/hr .Q10H KIMMY Administration Octreotide Acetate 500 mcg/ 501 mls @ 50.1 mls/hr 08/30/20 01:15 08/31/20 02:51 Sodium Chloride IVCONT 09/02/20 01:14 50 mcg/hr .Q10H KIMMY 50.1 mls/hr Administration 50 MCG/HR Morphine Sulfate 2 mg 08/30/20 17:52 08/30/20 18:12 Morphine Sulfate 2 Mg/Ml Cartridge IVPUSH 2 mg Q6H PRN Administration Pain, Moderate (Pain Scale 4-6 Ondansetron HCl 4 mg 08/30/20 01:05 Ondansetron Hcl 4 Mg/2 Ml Vial IVPUSH Q8H PRN Nausea and Vomiting Pantoprazole Sodium 40 mg 08/30/20 06:30 08/31/20 05:32 Pantoprazole Sodium 40 Mg/10 Ml Vial IVPUSH 40 mg BID@6099,4960 [facility] Administration Senna 17.2 mg 08/30/20 01:05 Sennosides 8.6 Mg Tablet PO BEDTIME PRN Constipation Sodium Chloride 3 ml 08/30/20 08:00 08/31/20 07:09 0.9 % Sodium Chloride Flush 3 Ml Syringe IVFLUSH Not Given QSHIFT KIMMY <Camilla Wynne NP - Last Filed: 08/31/20 10:19> Labs CBC & Chem 7: : 08/31/20 05:56 08/31/20 05:56 <Camilla Wynne NP - Last Filed: 08/31/20 10:19> Assessment and Plan (1) GI bleed: Status: Acute <Camilla Wynne NP - Last Filed: 08/31/20 10:19> Assessment and Plan: 70-year-old male with a past medical history of hep C, history of GI bleed requiring blood transfusion presented to the hospital with a chief compl aint of blood in the vomitus and blood in the stool. Hx of untreated hepatitis C (IVDA in the past). EGD with variceal banding in [place]. Variceal bleed, portal gastropathy EGD with variceal banding on 08/30/20 Had a few episodes of bloody stool yesterday and today -Continue octreotide drip as per Gastroenterology recommendations for 72 hours -PPI BID -Follow H&H -Gentle IV fluids -advance diet Coagulopathy secondary to liver disease Hypomagnesemia. resolved. -2gm IV mag History of hepatitis-C untreated should start treatment once he has returned to [place] -viral load, profile pending DVT prophylaxis with SCD boots Code status: Full code Attending: Dr. Urias <Camilla Wynne NP - Last Filed: 08/31/20 10:19> (2) Bleeding esophageal varices: Status: Acute <Camilla Wynne NP - Last Filed: 08/31/20 10:19> Assessment and Plan: I saw and examined the patient and discussed findings, mangement, and disposition with PA and I agree with the above, except if otherwise stated. He had loose BM mixed with blood, however H/H remains stable and he is hemodynamically stable. Will continue octreotide as above; <Mikel Bridgett MD - Last Filed: 08/31/20 14:25>
--- NOTE | 2020-08-31 14:52 | MHC.CM.PN ---
CM ATTEMPTED TO CONTACT PTS SON, YOSEF ([phone]), CALL WENT TO . CM WILL TRY AGAIN AT A LATER TIME.
[2020-08-31 16:44] LABS: Hematocrit 27.2 % (42-52); Hemoglobin 9.1 g/dl (14.0-18.0)
[2020-08-31] MEDS: 0.9 % Sodium Chloride Flush 3 ML SYRINGE IVFLUSH (16:47)
[2020-09-01] MEDS: Octreotide Acetate 500 MCG in 0.9 % Sodium Chloride 500 ML 50.1 MCG IVCONT ×3 (00:27→20:39)
[2020-09-01 03:37] LABS: HBc Num1 12.89 S/CO (0.00-0.79); HBsAGNum1 0.21 S/CO (0.00-0.99); Hepatitis B Surface Antigen Negative (Negative); ~HepC Num1 7.96 S/CO (0.00-0.79); ~Hepatitis C Antibody Reactive (Nonreactive)
[2020-09-01 03:43] VITALS: BP 152/70; PULSE 72; RESP 18; TEMP 37.1; O2SAT 96
[2020-09-01 03:50] LABS: HBS Num1 2.85 mIU/mL (0-7.99); ~Hepatitis B Surface Antibody NONREACTIVE (Nonreactive)
[2020-09-01 04:24] LABS: HBc Num2 12.85 S/CO; HBc Num3 12.54 S/CO; Hepatitis B Core Antibody Reactive (Nonreactive)
[2020-09-01] MEDS: Pantoprazole Sodium 40 MG/10 ML VIAL IVPUSH ×2 (06:08→16:30)
[2020-09-01 06:57] LABS: Hematocrit 27.2 % (42-52); Hemoglobin 8.9 g/dl (14.0-18.0); Mean Corpuscular HGB Conc 32.7 g/dl (31.0-36.0); Mean Corpuscular Hemoglobin 29.4 pg (27.0-33.0); Mean Corpuscular Volume 89.8 fL (80-98); Mean Platelet Volume 11.9 fL (9.4-12.4); Red Blood Count 3.03 X10*6/uL (4.60-5.80); Red Cell Distribution Width 17.7 % (11.0-16.0); White Blood Count 3.1 X10*3/uL (4.8-10.8)
[2020-09-01 07:01] LABS: Platelet Count 64 X10*3/uL (160-400)
[2020-09-01 07:05] LABS: Magnesium 1.8 mg/dL (1.6-2.6)
[2020-09-01 07:15] LABS: Blood Urea Nitrogen 14 mg/dL (9-16); Creatinine Clr Calc Pharmacy 78.2; Estimated Glomerular Filt Rate > 60; Glucose Random 100 mg/dL (60-115)
[2020-09-01 07:22] VITALS: BP 173/84; PULSE 68; RESP 20; TEMP 36.9; O2SAT 97
[2020-09-01 07:27] LABS: Anion Gap 9 (12-20); Carbon Dioxide 25 mmol/L (22-29); Chloride 113 mmol/L (96-108); Potassium 4.1 mmol/L (3.3-5.1); Sodium 143 mmol/L (135-145)
[2020-09-01] MEDS: 0.9 % Sodium Chloride Flush 3 ML SYRINGE IVFLUSH ×2 (08:44→16:32)
--- NOTE | 2020-09-01 11:07 | HO.PM.IMPN ---
Subjective Subjective Date of Service: 09/01/20 <Camilla Wynne NP - Last Filed: 09/01/20 15:57> 09/01/20 <Kristofer Unger MD - Last Filed: 09/04/20 13:37> Interval History: follow-up GI bleed and emesis no further bleeding no pain <Camilla Wynne NP - Last Filed: 09/01/20 15:57> Physical Exam Vital Signs: Vital Signs: Last Vital Signs Temp 98.4 F 09/01/20 07:22 Pulse 68 09/01/20 07:22 Resp 20 09/01/20 07:22 BP 173/84 H 09/01/20 07:22 Pulse Ox 97 09/01/20 07:22 Body Mass Index 25.0 <Camilla Wynne NP - Last Filed: 09/01/20 15:57> Appearing in no acute distress lung sounds are clear to auscultation heart regular rate rhythm, clear S1, S2 positive bowel sounds, abdomen is soft, nontender neuro patient is alert x3, no focal deficits <Camilla Wynne NP - Last Filed: 09/01/20 15:57> Objective Data Current Medications Generic Name Dose Route Start Last Admin Trade Name Freq PRN Reason Stop Dose Admin Octreotide Acetate 500 mcg/ 501 mls @ 50.1 mls/hr 08/31/20 13:00 09/01/20 10:08 Sodium Chloride IVCONT 50 mcg/hr .Q10H KIMMY 50.1 mls/hr Administration 50 MCG/HR Morphine Sulfate 2 mg 08/30/20 17:52 08/30/20 18:12 Morphine Sulfate 2 Mg/Ml Cartridge IVPUSH 2 mg Q6H PRN Administration Pain, Moderate (Pain Scale 4-6 Ondansetron HCl 4 mg 08/30/20 01:05 Ondansetron Hcl 4 Mg/2 Ml Vial IVPUSH Q8H PRN Nausea and Vomiting Pantoprazole Sodium 40 mg 08/30/20 06:30 09/01/20 06:08 Pantoprazole Sodium 40 Mg/10 Ml Vial IVPUSH 40 mg BID@0630,1630 KIMMY Administration Senna 17.2 mg 08/30/20 01:05 Sennosides 8.6 Mg Tablet PO BEDTIME PRN Constipation Sodium Chloride 3 ml 08/30/20 08:00 09/01/20 08:44 0.9 % Sodium Chloride Flush 3 Ml Syringe IVFLUSH 3 ml QSHIFT KIMMY Administration <Camilla Wynne NP - Last Filed: 09/01/20 15:57> Labs CBC & Chem 7: : 09/02/20 05:29 09/01/20 06:04 <Camilla Wynne NP - Last Filed: 09/01/20 15:57> Assessment and Plan (1) Bleeding esophageal varices: Status: Acute <Camilla Wynne NP - Last Filed: 09/01/20 15:57> Assessment and Plan: 70-year-old male with a past medical history of hep C, history of GI bleed requiring blood transfusion presented to the hospital with a chief complaint of blood in the vomitus and blood in the stool. Hx of untreated hepatitis C (IVDA in the past). EGD with variceal banding in [place]. Variceal bleed, portal gastropathy EGD with variceal banding on 08/30/20 No more bloody stools or emesis -Continue octreotide drip done today. -PPI BID -Follow H&H -Gentle IV fluids -advance diet Hypertension. Apparently the patient had been on medication previously blood pressures have been high during the admission -will add amlodipine 2.5 mg daily Coagulopathy secondary to liver disease Hypomagnesemia. resolved. -2gm IV mag History of hepatitis-C untreated should start treatment once he has returned to [place] -viral load, profile pending DISPO: Likely dc tomorrow when medically stable DVT prophylaxis with SCD boots Code status: Full code Attending: Dr. Urias <Camilla Wynne NP - Last Filed: 09/01/20 15:57>
[2020-09-01 11:30] VITALS: BP 172/85; PULSE 62; RESP 20; TEMP 36.9; O2SAT 95
[2020-09-01 11:56] LABS: Hematocrit 27.8 % (42-52); Hemoglobin 8.9 g/dl (14.0-18.0)
--- NOTE | 2020-09-01 12:58 | MHC.CM.PN ---
met with pts son and pt ,,pt was vivitng his son prior to admisison pt plans guanako gilliam to his sons [place] for a few weeks than jaya to [place]
[2020-09-01 13:26] LABS: Alpha Fetoprotein 1.3 ng/mL (<6.1)
--- NOTE | 2020-09-01 13:55 | PC.NURSE ---
Pt oob to chair with 1 assist for abouit an hour, requested BTB. Encouraged pt to stay oob but refused. No bleeding noted this shift. Continuesd on Ocreotide infusion
[2020-09-01 15:34] VITALS: BP 179/78; PULSE 66; RESP 18; TEMP 36.7; O2SAT 98
[2020-09-01] MEDS: amLODIPine Besylate 2.5 MG TABLET PO (16:30)
--- NOTE | 2020-09-01 17:26 | PC.NURSE ---
Pt BP 170's, Dr Unger and Camilla Jerome aware. Amlodipine ordered and given. Will monitor
[2020-09-01 19:05] VITALS: BP 172/86; PULSE 61; RESP 20; TEMP 36.7; O2SAT 96
[2020-09-01 23:29] VITALS: BP 170/86; PULSE 66; RESP 18; TEMP 36.8; O2SAT 98
[2020-09-02 03:28] VITALS: BP 182/74; PULSE 66; RESP 18; TEMP 36.7; O2SAT 97
[2020-09-02] MEDS: Pantoprazole Sodium 40 MG/10 ML VIAL IVPUSH (05:56)
[2020-09-02] MEDS: Octreotide Acetate 500 MCG in 0.9 % Sodium Chloride 500 ML 50.1 MCG IVCONT (05:57)
[2020-09-02 06:54] LABS: Mean Corpuscular HGB Conc 33.3 g/dl (31.0-36.0); Mean Corpuscular Hemoglobin 29.6 pg (27.0-33.0); Mean Corpuscular Volume 88.8 fL (80-98); Mean Platelet Volume 12.2 fL (9.4-12.4); Red Blood Count 3.04 X10*6/uL (4.60-5.80); Red Cell Distribution Width 17.4 % (11.0-16.0); White Blood Count 3.1 X10*3/uL (4.8-10.8)
[2020-09-02 07:06] LABS: Platelet Count 65 X10*3/uL (160-400)
[2020-09-02 07:59] VITALS: BP 182/80; PULSE 66; RESP 20; TEMP 36.9; O2SAT 97
[2020-09-02 08:31] VITALS: BP 113/64; PULSE 66
[2020-09-02] MEDS: amLODIPine Besylate 2.5 MG TABLET PO (08:31)
[2020-09-02] MEDS: Morphine Sulfate 2 MG/ML CARTRIDGE IVPUSH (08:32)
[2020-09-02] MEDS: 0.9 % Sodium Chloride Flush 3 ML SYRINGE IVFLUSH (08:36)
--- NOTE | 2020-09-02 09:38 | MHC.CM.PN ---
pt to be dccd to sons home .his son will provide trnasport home
--- NOTE | 2020-09-02 12:35 | P.DS_ITS ---
DS: Providers Provider Date of Service: 09/02/20 <Camilla Wynne NP - Last Filed: 09/02/20 12:39> Date of admission: 08/30/20 01:05 <Camilla Wynne NP - Last Filed: 09/02/20 12:39> Date of discharge: 09/02/20 <Camilla Wynne NP - Last Filed: 09/02/20 12:39> Primary care physician: Nonstaff Physician <Camilla Wynne NP - Last Filed: 09/02/20 12:39> Admitting clinician: Scott Taylor <Camilla Wynne NP - Last Filed: 09/02/20 12:39> Attending physician on admission: Scott Taylor <Camilla Wynne NP - Last Filed: 09/02/20 12:39> Consults: 08/30/20 01:06 Consult to Gastroenterology Routine Consulting Provider: Kermit Bob Reason for consultation: GI bleed <Camilla Wynne NP - Last Filed: 09/02/20 12:39> Attending physician on discharge: Kristofer Unger <Camilla Wynne NP - Last Filed: 09/02/20 12:39> Discharging clinician: Camilla Wynne <Camilla Wynne NP - Last Filed: 09/02/20 12:39> DS: Diagnosis Discharge Diagnosis (1) Bleeding esophageal varices: Status: Acute <Camilla Wynne NP - Last Filed: 09/02/20 12:39> DS: Medications Discharge Medications Home Medications: Previous Rx's Medication Instructions Recorded amlodipine 2.5 mg PO DAILY #30 tab 09/02/20 <Camilla Wynne NP - Last Filed: 09/02/20 12:39> DS: Summary Hospital Course Hospital Course: HP as per admitting provider 70-year-old male with a past medical history of hepatitis-C, history of GI bleed-received blood transfusions in the past; history of question varices presented to the hospital with a chief complaint of blood in the vomitus. Patient reported that he had an episode of blood in the stool, bright red in color, followed by a he had a small amount of blood in the vomitus. Subsequently came to the ER for further evaluation. Mentions that he had similar episode in the past about a year ago and received blood transfusion. Patient denies any chest pain palpitations lightheadedness dizziness. Denies any numbness tingling. Denies any fever chills cough. Denies any urinary symptoms. Review of all other systems is negative except mentioned above . Variceal bleeding. Patient with history of chronic variceal bleeding has been banded in the past. Lives in [place] but has been on vacation visiting his family. He presented initially with bloody vomitus and reported episodes of blood in his stool. He was treated with IV Protonix, octreotide, seen and evaluated by GI and had varices banded. After that patient continue octreotide for 72 hours and had no further bleeding be emesis or rectal. Abdominal pain at improved and patient was safe for discharge. Hypertension. Patient reports that went to point any had been on antihypertensives. Systolic blood pressures were as high as 180s. He was started on low-dose amlodipine 2.5 mg p.o. daily. Prescription was sent to his pharmacy. In he was started on this medication when he goes back to [place] he discussed with his primary care provider if anything need to be changed. History of hepatitis C. He should follow-up with his primary care provider for possible treatment. He has viral load pending and can get medical records via portal or request through medical records to sent to his primary care provider. Attending Attestation: Patient seen and examined independently and I was present during ron portion of E/M service. Agree with Deanne Wynne NP's history, physical, assessment, and plan. <Camilla Wynne NP - Last Filed: 09/02/20 12:39> Time Spent with Patient Time attestation: Total time spent providing and/or coordinating discharge services: <Camilla Wynne NP - Last Filed: 09/02/20 12:39> Discharge coordination time: Greater than 30 minutes <Camilla Wynne NP - Last Filed: 09/02/20 12:39> Quality: Stroke Does the patient have a stroke diagnosis?: No <Camilla Wynne NP - Last Filed: 09/02/20 12:39> Physical Exam Vital Signs: Vital Signs: Last Vital Signs Temp 98.4 F 09/02/20 07:59 Pulse 66 09/02/20 08:31 Resp 20 09/02/20 07:59 BP 113/64 09/02/20 08:31 Pulse Ox 97 09/02/20 07:59 Body Mass Index 25.0 <Camilla Wynne NP - Last Filed: 09/02/20 12:39> Appearing in no acute distress head is normocephalic atraumatic eyes pupils are PERRLA sclera is anicteric mouth throat mucous membranes are intact and moist neck is supple no lymphadenopathy, no JVD noted lung sounds are clear to auscultation heart regular rate rhythm, clear S1, S2 positive bowel sounds, abdomen is soft, nontender neuro patient is alert x3, no focal deficits <Camilla Wynne NP - Last Filed: 09/02/20 12:39> DS: Data Data Completed and Pending Labs on day of discharge: Laboratory Results - last 24 hr 08/31/20 09/02/20 05:56 05:29 WBC 3.1 L RBC 3.04 L Hgb 9.0 L Hct 27.0 L MCV 88.8 MCH 29.6 MCHC 33.3 RDW 17.4 H Plt Count 65 L MPV 12.2 Absolute Nucleated RBC 0.000 Nucleated RBC % (auto) 0.0 Alpha Fetoprotein 1.3 <Camilla Wynne NP - Last Filed: 09/02/20 12:39> Discharge Plan Discharge Anticipated Discharge Date/Time: 09/02/20 10:21 <Camilla Wynne NP - Last Filed: 09/02/20 12:39> Patient Disposition: Home, Self-Care <Camilla Wynne NP - Last Filed: 09/02/20 12:39> Discharge Diagnosis: Variceal bleeding <Camilla Wynne NP - Last Filed: 09/02/20 12:39> Variceal bleeding <Kristofer Unger MD - Last Filed: 09/02/20 16:15> Discharge Medications: New amlodipine 2.5 mg Tablet 2.5 mg PO DAILY Qty: 30 RF: 0 <Camilla Wynne NP - Last Filed: 09/02/20 12:39> Discharge Orders: Discharge Order (Routine); Ordered 09/02/20 Ordered By: Camilla Wynne <Camilla Wynne NP - Last Filed: 09/02/20 12:39> Diet: advance to usual diet <Camilla Wynne NP - Last Filed: 09/02/20 12:39> advance to usual diet <Kristofer Unger MD - Last Filed: 09/02/20 16:15> Activity on Discharge: As tolerated <Camilla Wynne NP - Last Filed: 09/02/20 12:39> As tolerated <Kristofer Unger MD - Last Filed: 09/02/20 16:15> Stand Alone Forms: Patient Portal Discharge page <Camilla Wynne NP - Last Filed: 09/02/20 12:39> Care Plan Goals: resolution gastrointestinal bleeding <Camilla Wynne NP - Last Filed: 09/02/20 12:39> Health Concerns: variceal bleeding <Camilla Wynne NP - Last Filed: 09/02/20 12:39> Plan of Treatment: Follow-up with primary care provider in [place] regarding your diagnosis of hepatitis C for possible treatment return to the emergency department for any blood vomiting of blood or blood in her stool <Camilla Wynne NP - Last Filed: 09/02/20 12:39> Assessment: see discharge summary <Camilla Wynne NP - Last Filed: 09/02/20 12:39> Discharge Date/Time: 09/02/20 12:26 <Camilla Wynne NP - Last Filed: 09/02/20 12:39>
[2020-09-02 17:16] LABS: Hepatitis B Core Antibody IgM NON-REACTIVE (NON-REACTIVE)
[2020-09-02 20:57] LABS: HCV Log PCR 5.69 Log IU/mL (NOT DETECTED)
[2020-09-03 07:25] LABS: Hepatitis A Antibody IgM 0.73 Index (0-0.79); ~Hepatitis A Antibody IgM Nonreactive (Nonreactive)
== END 2020-09-02 12:26 | disposition home or self-care (01) | DRG 242 ==
LOC: HO.ED 08-30 01:23 → HO.EDOVER 08-30 02:00 → HO.IMC 08-30 11:28
PROVIDERS: Internal Medicine; Internal Medicine Gastroenterology; Nurse Practitioner Acute Care; Admitting Provider Hospitalist; Emergency Provider Internal Medicine; Visit Provider Family Medicine
PROC: 0DJ08ZZ Inspection of Upper Intestinal Tract, Via Natural or Artificial Opening Endoscopic (ICD-10-PCS; CPT 43235; principal; 2020-08-30 09:20)
DX: I85.01 Esophageal varices with bleeding (principal); B18.2 Chronic viral hepatitis C; Z20.822 Contact with and (suspected) exposure to COVID-19
CPT/HCPCS: 36415; 76705; 80048; 80076; 82105; 82272; 83690; 83735; 85014; 85018; 85025; 85027; 85610; 85730; 86704; 86705; 86706; 86709; 86803; 86850; 86900; 86901; 86923; 87340; 87522; 87635; 99284; J2270; J2354; J2405; J3010; J3475; P9016